=== PATIENT | female | born 1985 | race Caucasian/White ===

== ENCOUNTER → 2020-08-31 10:20 | Outpatient (CLI) | payer BC, SELFPAY ==
--- NOTE | ~2020-08-31 | XR_ITS ---
XR thoracic spine 2V DATE: 08/31/2020 11:19 INDICATION: Mid back pain TECHNIQUE: AP, lateral, swimmer views COMPARISON: None FINDINGS: There is minimal dextroscoliosis of the thoracic spine. No fracture or dislocation or bone destruction. The thoracic pedicles are intact. There is no paraspinal soft tissue thickening. IMPRESSION: Minimal dextroscoliosis Reviewed, dictated and finalized at location B. OR WAREHOUSE CLERK IMPRESSION: Minimal dextroscoliosis
--- NOTE | ~2020-08-31 | XR_ITS ---
XR lumbar spine 2-3V DATE: 08/31/2020 11:19 INDICATION: Low back pain TECHNIQUE: AP, lateral, coned lateral lumbosacral views COMPARISON: None FINDINGS: There is mild levoscoliosis of the lower thoracic and lumbar spine. No fracture or bone destruction. The lumbar pedicles are intact. Lumbar and lumbosacral interspaces a re well preserved. The sacroiliac joints appear normal. IMPRESSION: Mild levoscoliosis Reviewed, dictated and finalized at location B. ATERIALS ENGINEER IMPRESSION: Mild levoscoliosis
--- NOTE | ~2020-08-31 | XR_ITS ---
XR_CERV2-3V_CR DATE: 08/31/2020 11:18 INDICATION: Neck pain TECHNIQUE: AP, open-mouth, lateral views COMPARISON: None FINDINGS: C1 and C2 are normally aligned and the odontoid process is intact. There is minimal retrolisthesis at C4-5. Otherwise there is normal alignment of the cervical spine. N o fracture or dislocation or locked facet. No prevertebral soft tissue swelling. Cervical interspaces are well preserved. IMPRESSION: Minimal retrolisthesis at C4-5 Reviewed, dictated and finalized at Location A. Reviewed, dictated and finalized at location B. MONIUM NITRATE CRYSTALLIZER
== END ==
PROVIDERS: Visit Provider Chiropractor
DX: M54.5 Low back pain (principal); M54.2 Cervicalgia; M54.6 Pain in thoracic spine
CPT/HCPCS: 72040; 72070; 72100